=== PATIENT | male | born 1990 | race Caucasian/White ===

== ENCOUNTER 2018-12-12 12:45 | Emergency (ER) | payer MEDICAID ==
[~2018-12-12] VITALS: Ht 180.3 cm; Wt 83.0 kg
[2018-12-12 12:51] VITALS: Ht 180.3 cm; Wt 83.0 kg
[2018-12-12 13:23] LABS: microscopic required? NO
[2018-12-12 13:29] LABS: UA SPECIFIC GRAVITY 1.015 (1.005-1.035); urine erythrocyte NEGATIVE (NEGATIVE)
[2018-12-12 13:30] LABS: BASOPHIL % 0.4 % (0-2); PLATELET COUNT 228 x10^3mcL (130-400); RED CELL DISTRIBUTION WIDTH 12.8 % (11.5-14.5)
[2018-12-12 14:02] LABS: CARBON DIOXIDE 30.5 mmol/L (21-32); CHLORIDE SERUM 101 mmol/L (98-107); GLUCOSE SERUM 86 mg/dL (74-106); POTASSIUM SERUM 3.9 mmol/L (3.5-5.1); SODIUM SERUM 138 mmol/L (136-145)
[2018-12-12 14:16] LABS: T3 TOTAL 1.05 ng/mL
[2018-12-12 14:37] LABS: ALBUMIN 4.1 g/dL (3.4-5.0); ALKALINE PHOSPHATASE 73 U/L (46-116); ALT/SGPT 55 U/L (16-63); AST/SGOT 44 U/L (15-37); BILIRUBIN TOTAL 0.6 mg/dL (0.20-1.00); CALCIUM 9.1 mg/dL (8.5-10.1); CHOLESTEROL 167 mg/dL (<200); CREATININE SERUM 0.9 mg/dL (0.7-1.3); GFR1 > 60 mL/min; LIPASE 142 IU/L (73-393); TOTAL PROTEIN, SERUM 7.7 g/dL (6.4-8.2); TRIGLYCERIDES 36 mg/dL (<150)
[2018-12-12 14:42] LABS: CHOLESTEROL/HDL RATIO 2.5; HDL CHOLESTEROL 67 mg/dL (40-60)
[2018-12-12 15:17] LABS: FREE T4 1.14 ng/dL (0.76-1.46); FREE THYROXINE INDEX 2.8 ug/dL (1.4-4.5); T4(THYROXINE) 7.1 ug/dL (4.7-13.3)
[2018-12-12 15:29] VITALS: BP 114/68
== END 2018-12-12 15:34 | disposition home or self-care (01) ==
LOC: ED 12:45
PROVIDERS: Specialist
DX: R07.89 Other chest pain (principal); F41.9 Anxiety disorder, unspecified; J45.909 Unspecified asthma, uncomplicated
CPT/HCPCS: 83880; 84439; J1885; J7030; Q0092